=== PATIENT | female | born 2000 | race Caucasian/White ===

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

== ENCOUNTER 2021-02-04 19:45 | Emergency (ER) | payer OTHER | END 2021-02-04 21:55 | disposition home or self-care (01) | LOC: FER 19:45 | DX: J02.9 Acute pharyngitis, unspecified (principal); Z88.1 Allergy status to other antibiotic agents | CPT/HCPCS: 87880; 99283 ==